=== PATIENT | male | born 1960 ===

== ENCOUNTER 2021-08-27 09:48 | Outpatient (CLI) | payer OTHER | END 2021-08-27 09:57 | disposition home or self-care (01) | LOC: RAD 09:48 | PROVIDERS: ATTEND Orthopaedic Surgery | DX: M25.562 Pain in left knee (principal) ==

== ENCOUNTER 2022-04-26 10:41 | Emergency (ER) | payer OTHER ==
[~2022-04-26] VITALS: Ht 175.3 cm; Wt 78.0 kg
== END 2022-04-26 13:59 | disposition home or self-care (01) ==
LOC: ER 10:41
DX: J02.9 Acute pharyngitis, unspecified (principal); D58.2 Other hemoglobinopathies; Z20.822 Contact with and (suspected) exposure to COVID-19